=== PATIENT | female | born 1940 | race Two or more races ===

== ENCOUNTER 2017-10-18 15:56 | Inpatient (IN) | payer MEDICARE, OTHER ==
[~2017-10-18] VITALS: Ht 157.5 cm; Wt 74.4 kg
[~2017-10-18 15:56] MED LIST: ACE3T PO; ACET-1304 PO; CALC500T87 PO; CRANCAP13 PO; DICY10CA55 PO; ESOM20CA PO; METH-824 PO; MULTTAB99 PO; NEBI5TAB2 PO; OMEG300C7 PO; ROSU10TA16 PO
[2017-10-18 18:08] LABS: Basophils # (auto) 0 uL; Basophils % (auto) 0.3 % (0.0-2.0); Eosinophils # (auto) 0.1 uL; Eosinophils % (auto) 0.6 % (0.0-7.0); Hematocrit 39.9 % (36.0-46.0); Hemoglobin 13.2 g/dL (12.2-16.2); Lymphocytes # (auto) 1.6 uL; Lymphocytes % (auto) 13.2 % (10.0-50.0); Mean Corpuscular Hemoglobin 31.5 pg (28.0-32.0); Mean Corpuscular Hgb Conc. 33.1 g/dL (32.0-36.0); Mean Corpuscular Volume 95.1 fL (80.0-100.0); Monocytes # (auto) 0.7 uL; Monocytes % (auto) 5.9 % (0.0-12.0); Neutrophils # (auto) 9.5 uL; Platelet Count (auto) 252 10^3/uL (140-450); Red Blood Cells 4.19 10^6/uL (4.0-5.20); White Blood Cell 11.9 10^3/uL (4.4-10.8)
[2017-10-18] MEDS ORDERED: ONDANSETRON HCL 4 MG/2 ML VIAL IV ONE (18:15)
[2017-10-18] MEDS ORDERED: MORPHINE SULF INJ 2 MG/ML SYRINGE 1ML IV ONE ×2 (18:15→20:15)
[2017-10-18 18:26] LABS: INR 0.94 (0.9-1.15); Partial Thromboplastin Time 27.5 sec (23.78-33.04); Prothrombin Time 10.1 sec (9.27-12.13)
[2017-10-18 18:31] LABS: Alanine Aminotransferase 25 U/L (13-56); Albumin 3.9 g/dL (3.4-5.0); Alkaline Phosphatase 69 U/L (45-117); Anion Gap 5 (5-15); Aspartate Aminotransferase 14 U/L (15-37); BUN/Creatinine Ratio 12.3; Bilirubin, Total 0.2 mg/dL (0.2-1.0); Blood Urea Nitrogen 13 mg/dL (7-18); Calcium 8.6 mg/dL (8.5-10.1); Carbon Dioxide 25 mmol/L (21-32); Chloride 109 mmol/L (98-107); GFR African American 64 mL/min; GFR Non-African American 53 mL/min; Glucose 103 mg/dL (74-106); Magnesium 2.9 mg/dL (1.6-2.6); Sodium 139 mmol/L (136-145); Total Protein 7.7 g/dL (6.4-8.2)
[2017-10-18 18:38] LABS: Urine Bacteria NONE SEEN /hpf (None Seen); Urine Blood Negative /uL (Negative); Urine Hyaline Cast FEW /lpf (0 - 2); Urine Mucus FEW (None Seen); Urine Specific Gravity 1.026 (1.001-1.035); Urine WBC 6 /hpf (0 - 5)
[2017-10-18] MEDS ORDERED: PROMETHAZINE HCL 25 MG/ML 1ML IV ONE (20:15)
[2017-10-18] MEDS ORDERED: cefTRIAXone 1GM/10ml IVPUSH 10 ML IV ONE (20:15)
[2017-10-18] MEDS ORDERED: ACETAMINOPHEN 325 MG TAB PO PRN (21:15)
[2017-10-18 22:20] VITALS: BP 121/59
[2017-10-18] MEDS: CALCIUM CARB 500 MG CHEW TAB PO SCH (22:22)
[2017-10-18] MEDS: FAMOTIDINE 20 MG TAB PO SCH (22:22)
[2017-10-18 23:13] VITALS: BP 121/59
[2017-10-19] MEDS ORDERED: MORPHINE SULF INJ 2 MG/ML SYRINGE 1ML IV PRN (01:30)
[2017-10-19] MEDS: HYDROcodone-ACET 5/325MG TAB PO PRN (03:07)
[2017-10-19] MEDS: ONDANSETRON HCL 4 MG/2 ML VIAL IV PRN ×4 (03:08→23:13)
[2017-10-19 05:00] VITALS: BP 183/76
[2017-10-19 06:05] LABS: Basophils # (auto) 0 uL; Basophils % (auto) 0.3 % (0.0-2.0); Eosinophils # (auto) 0 uL; Eosinophils % (auto) 0.4 % (0.0-7.0); Hematocrit 36.4 % (36.0-46.0); Hemoglobin 12.4 g/dL (12.2-16.2); Lymphocytes % (auto) 22.1 % (10.0-50.0); Mean Corpuscular Hgb Conc. 34.1 g/dL (32.0-36.0); Mean Corpuscular Volume 93.9 fL (80.0-100.0); Monocytes # (auto) 0.6 uL; Monocytes % (auto) 6.7 % (0.0-12.0); Neutrophils # (auto) 6.4 uL; Neutrophils % (auto) 70.5 % (37.0-80.0); Platelet Count (auto) 218 10^3/uL (140-450); Red Blood Cells 3.87 10^6/uL (4.0-5.20); Red Cell Distribution Width 13.4 % (11.8-14.3)
[2017-10-19 06:34] LABS: Albumin 3.5 g/dL (3.4-5.0); Bilirubin, Total 0.4 mg/dL (0.2-1.0); Calcium 8.4 mg/dL (8.5-10.1); Potassium 3.7 mmol/L (3.5-5.1); Total Protein 6.9 g/dL (6.4-8.2)
[2017-10-19] MEDS: MORPHINE SULF INJ 2 MG/ML SYRINGE 1ML IV PRN ×2 (06:37→10:21)
[2017-10-19 08:18] VITALS: BP 165/79
[2017-10-19] MEDS: FAMOTIDINE 20 MG TAB PO SCH ×2 (10:00→23:08)
[2017-10-19] MEDS: ENOXAPARIN SOD 40 MG/0.4 ML SYRINGE SC SCH (10:00)
[2017-10-19] MEDS ORDERED: BYSTOLIC 5 MG PO SCH (10:00)
[2017-10-19] MEDS: CALCIUM CARB 500 MG CHEW TAB PO SCH ×2 (10:27→21:56)
[2017-10-19] MEDS: MORPHINE SULFATE 4 MG/ML SYR/VIAL IV PRN ×3 (12:39→23:12)
[2017-10-19] MEDS: METOPROLOL TARTRATE 50 MG TAB PO SCH ×2 (13:31→21:55)
[2017-10-19 13:52] VITALS: BP 172/70
[2017-10-19 16:24] VITALS: BP 127/67
[2017-10-19] MEDS: cefTRIAXone 1GM/10ml IVPUSH 10 ML IV SCH (21:54)
[2017-10-19] MEDS: ATORVASTATIN 20 MG TAB PO SCH (21:54)
[2017-10-19 22:00] VITALS: BP 149/84
[2017-10-20 05:00] VITALS: BP 164/83
[2017-10-20] MEDS: ONDANSETRON HCL 4 MG/2 ML VIAL IV PRN ×3 (05:14→21:10)
[2017-10-20] MEDS: MORPHINE SULFATE 4 MG/ML SYR/VIAL IV PRN ×3 (05:14→21:11)
[2017-10-20] MEDS: HYDROcodone-ACET 5/325MG TAB PO PRN ×2 (07:47→16:52)
[2017-10-20 09:02] VITALS: BP 159/82
[2017-10-20] MEDS: METOPROLOL TARTRATE 50 MG TAB PO SCH ×2 (09:45→21:09)
[2017-10-20] MEDS: CALCIUM CARB 500 MG CHEW TAB PO SCH ×2 (09:45→21:03)
[2017-10-20] MEDS: ENOXAPARIN SOD 40 MG/0.4 ML SYRINGE SC SCH (09:46)
[2017-10-20] MEDS: FAMOTIDINE 20 MG TAB PO SCH ×3 (09:46→21:03)
[2017-10-20] MEDS ORDERED: GABAPENTIN 300 MG CAP PO ONE (12:00)
[2017-10-20 12:10] VITALS: BP 151/81
[2017-10-20] MEDS: DOCUSATE SOD 100 MG CAP PO PRN (16:53)
[2017-10-20 17:10] VITALS: BP 165/83
[2017-10-20 17:50] VITALS: BP 128/72
[2017-10-20] MEDS: cefTRIAXone 1GM/10ml IVPUSH 10 ML IV SCH (21:03)
[2017-10-20] MEDS: ATORVASTATIN 20 MG TAB PO SCH (21:09)
[2017-10-20 22:00] VITALS: BP 168/85
[2017-10-21] MEDS: MORPHINE SULFATE 4 MG/ML SYR/VIAL IV PRN ×3 (04:14→17:23)
[2017-10-21] MEDS: ONDANSETRON HCL 4 MG/2 ML VIAL IV PRN ×3 (04:14→17:21)
[2017-10-21 05:30] VITALS: BP 142/76
[2017-10-21 08:55] VITALS: BP 137/74
[2017-10-21] MEDS: METOPROLOL TARTRATE 50 MG TAB PO SCH ×2 (09:29→22:06)
[2017-10-21] MEDS: CALCIUM CARB 500 MG CHEW TAB PO SCH ×2 (09:30→22:04)
[2017-10-21] MEDS: DOCUSATE SOD 100 MG CAP PO PRN (09:30)
[2017-10-21] MEDS: FAMOTIDINE 20 MG TAB PO SCH ×2 (09:30→22:05)
[2017-10-21] MEDS: GABAPENTIN 300 MG CAP PO SCH (09:31)
[2017-10-21] MEDS: ENOXAPARIN SOD 40 MG/0.4 ML SYRINGE SC SCH (09:32)
[2017-10-21 14:12] VITALS: BP 155/65
[2017-10-21 17:27] VITALS: BP 160/79
[2017-10-21 21:46] VITALS: BP 133/76
[2017-10-21] MEDS: cefTRIAXone 1GM/10ml IVPUSH 10 ML IV SCH (21:51)
[2017-10-21] MEDS: TEMAZEPAM 15 MG CAP PO PRN (22:04)
[2017-10-21] MEDS: ATORVASTATIN 20 MG TAB PO SCH (22:05)
[2017-10-22] MEDS: MORPHINE SULFATE 4 MG/ML SYR/VIAL IV PRN ×3 (01:27→18:03)
[2017-10-22] MEDS: ONDANSETRON HCL 4 MG/2 ML VIAL IV PRN ×2 (01:27→09:54)
[2017-10-22] MEDS: HYDROcodone-ACET 5/325MG TAB PO PRN ×2 (02:54→21:32)
[2017-10-22 05:07] VITALS: BP 134/73
[2017-10-22 08:00] VITALS: BP 137/74
[2017-10-22] MEDS: FAMOTIDINE 20 MG TAB PO SCH ×2 (08:47→21:31)
[2017-10-22] MEDS: CALCIUM CARB 500 MG CHEW TAB PO SCH ×2 (08:47→21:31)
[2017-10-22 08:57] VITALS: BP 137/74
[2017-10-22] MEDS: ENOXAPARIN SOD 40 MG/0.4 ML SYRINGE SC SCH (09:53)
[2017-10-22] MEDS: METOPROLOL TARTRATE 50 MG TAB PO SCH ×2 (09:53→21:31)
[2017-10-22] MEDS: GABAPENTIN 300 MG CAP PO SCH (09:53)
[2017-10-22] MEDS: DOCUSATE SOD 100 MG CAP PO PRN (09:54)
[2017-10-22 12:55] VITALS: BP 153/76
[2017-10-22] MEDS ORDERED: LACTULOSE 20Gm/30ML SOLN PO ONE (13:45)
[2017-10-22 17:00] VITALS: BP 151/83
[2017-10-22 20:04] LABS: Basophils # (auto) 0 uL; Basophils % (auto) 0.2 % (0.0-2.0); Eosinophils # (auto) 0 uL; Eosinophils % (auto) 0.2 % (0.0-7.0); Hematocrit 38.1 % (36.0-46.0); Hemoglobin 12.5 g/dL (12.2-16.2); Lymphocytes # (auto) 1.4 uL; Lymphocytes % (auto) 12.5 % (10.0-50.0); Mean Corpuscular Hemoglobin 31.3 pg (28.0-32.0); Mean Corpuscular Hgb Conc. 32.9 g/dL (32.0-36.0); Mean Corpuscular Volume 95.1 fL (80.0-100.0); Monocytes # (auto) 0.9 uL; Monocytes % (auto) 7.9 % (0.0-12.0); Neutrophils # (auto) 9.1 uL; Neutrophils % (auto) 79.2 % (37.0-80.0); Platelet Count (auto) 261 10^3/uL (140-450); White Blood Cell 11.5 10^3/uL (4.4-10.8)
[2017-10-22 20:11] LABS: INR 0.93 (0.9-1.15); Partial Thromboplastin Time 29.2 sec (23.78-33.04)
[2017-10-22 20:19] LABS: Anion Gap 12 (5-15); BUN/Creatinine Ratio 19.6; Blood Urea Nitrogen 18 mg/dL (7-18); Calcium 8.5 mg/dL (8.5-10.1); Carbon Dioxide 24 mmol/L (21-32); Chloride 97 mmol/L (98-107); GFR African American 76 mL/min; GFR Non-African American 63 mL/min; Glucose 155 mg/dL (74-106); Potassium 3.8 mmol/L (3.5-5.1); Sodium 133 mmol/L (136-145)
[2017-10-22] MEDS: cefTRIAXone 1GM/10ml IVPUSH 10 ML IV SCH (21:29)
[2017-10-22] MEDS: ATORVASTATIN 20 MG TAB PO SCH (21:30)
[2017-10-22] MEDS: LACTULOSE 20Gm/30ML SOLN PO SCH (21:30)
[2017-10-22] MEDS: TEMAZEPAM 15 MG CAP PO PRN (21:32)
[2017-10-22 22:00] VITALS: BP_SYST 85
[2017-10-23 05:16] VITALS: BP 131/79
[2017-10-23] MEDS: MORPHINE SULFATE 4 MG/ML SYR/VIAL IV PRN ×6 (08:00→21:09)
[2017-10-23] MEDS: ONDANSETRON HCL 4 MG/2 ML VIAL IV PRN ×2 (08:00→21:09)
[2017-10-23 09:00] VITALS: BP 150/66
[2017-10-23] MEDS: FAMOTIDINE 20 MG TAB PO SCH ×2 (09:55→22:14)
[2017-10-23] MEDS: METOPROLOL TARTRATE 50 MG TAB PO SCH ×2 (09:56→22:15)
[2017-10-23] MEDS: LACTULOSE 20Gm/30ML SOLN PO SCH ×2 (10:00→21:13)
[2017-10-23] MEDS: ENOXAPARIN SOD 40 MG/0.4 ML SYRINGE SC SCH (10:00)
[2017-10-23] MEDS: GABAPENTIN 300 MG CAP PO SCH (10:00)
[2017-10-23] MEDS: CALCIUM CARB 500 MG CHEW TAB PO SCH ×2 (10:00→21:13)
[2017-10-23] MEDS ORDERED: BUPIVACAINE 0.25% INJ 50ML VIAL ONE (12:06)
[2017-10-23] MEDS ORDERED: ceFAZolin 1GM/50ML 50 ML IV ONE (12:06)
[2017-10-23] MEDS ORDERED: ROCURONIUM 10MG/ML 10ML VIAL IV ONE (12:33)
[2017-10-23] MEDS ORDERED: fentaNYL CITRATE 100 MCG/2 ML VL ONE ×2 (12:33→13:59)
[2017-10-23] MEDS ORDERED: PROPOFOL 10 MG/ML 20 ML IV ONE (12:36)
[2017-10-23] MEDS: hydrALAZINE HCL 20 MG/ML VL IV PRN ×3 (14:24→17:23)
[2017-10-23] MEDS ORDERED: MORPHINE SULFATE INJECTION 1 ML ONE (14:25)
[2017-10-23] MEDS ORDERED: ePHEDrine SULFATE 50 MG/ML AMP IV PRN (16:15)
[2017-10-23] MEDS ORDERED: ONDANSETRON HCL 4 MG/2 ML VIAL IV ONE (16:15)
[2017-10-23] MEDS: HYDROcodone-ACET 5/325MG TAB PO PRN (19:54)
[2017-10-23] MEDS: cefTRIAXone 1GM/10ml IVPUSH 10 ML IV SCH (21:09)
[2017-10-23 21:27] VITALS: BP 117/60
[2017-10-23] MEDS: ATORVASTATIN 20 MG TAB PO SCH (22:14)
[2017-10-24] MEDS: HYDROcodone-ACET 5/325MG TAB PO PRN ×3 (01:01→19:35)
[2017-10-24] MEDS: TEMAZEPAM 15 MG CAP PO PRN (01:01)
[2017-10-24 05:03] VITALS: BP 132/65
[2017-10-24] MEDS: MORPHINE SULFATE 4 MG/ML SYR/VIAL IV PRN ×3 (06:47→21:58)
[2017-10-24 09:00] VITALS: BP 135/65
[2017-10-24] MEDS: FAMOTIDINE 20 MG TAB PO SCH ×2 (11:16→21:37)
[2017-10-24] MEDS: CALCIUM CARB 500 MG CHEW TAB PO SCH ×2 (11:16→21:37)
[2017-10-24] MEDS: GABAPENTIN 300 MG CAP PO SCH (11:17)
[2017-10-24] MEDS: METOPROLOL TARTRATE 50 MG TAB PO SCH ×2 (11:17→21:38)
[2017-10-24] MEDS: ONDANSETRON HCL 4 MG/2 ML VIAL IV PRN (11:17)
[2017-10-24] MEDS: LACTULOSE 20Gm/30ML SOLN PO SCH ×2 (11:19→21:37)
[2017-10-24] MEDS: ENOXAPARIN SOD 40 MG/0.4 ML SYRINGE SC SCH (11:20)
[2017-10-24] MEDS ORDERED: HYDROcodone-ACET 10/325MG TAB PO ONE (12:45)
[2017-10-24 13:00] VITALS: BP 147/65
[2017-10-24 17:00] VITALS: BP 147/67
[2017-10-24] MEDS ORDERED: FLEET ENEMA(ADULT) 135 ML PR ONE (19:00)
[2017-10-24 21:31] VITALS: BP 145/70
[2017-10-24] MEDS: ATORVASTATIN 20 MG TAB PO SCH (21:37)
[2017-10-24] MEDS: cefTRIAXone 1GM/10ml IVPUSH 10 ML IV SCH (21:37)
[2017-10-25] MEDS: TEMAZEPAM 15 MG CAP PO PRN ×2 (00:20→22:28)
[2017-10-25 04:35] VITALS: BP 141/71
[2017-10-25 05:56] LABS: Hemoglobin 10.6 g/dL (12.2-16.2)
[2017-10-25] MEDS: HYDROcodone-ACET 5/325MG TAB PO PRN ×4 (06:41→20:22)
[2017-10-25 08:49] VITALS: BP 142/69
[2017-10-25] MEDS: FAMOTIDINE 20 MG TAB PO SCH ×2 (09:46→22:28)
[2017-10-25] MEDS: LACTULOSE 20Gm/30ML SOLN PO SCH ×2 (09:46→22:27)
[2017-10-25] MEDS: CALCIUM CARB 500 MG CHEW TAB PO SCH ×2 (09:46→22:28)
[2017-10-25] MEDS: ENOXAPARIN SOD 40 MG/0.4 ML SYRINGE SC SCH (09:46)
[2017-10-25] MEDS: GABAPENTIN 300 MG CAP PO SCH (09:47)
[2017-10-25] MEDS: METOPROLOL TARTRATE 50 MG TAB PO SCH ×2 (09:47→22:28)
[2017-10-25] MEDS: MORPHINE SULFATE 4 MG/ML SYR/VIAL IV PRN (10:41)
[2017-10-25] MEDS ORDERED: MAGNESIUM CITRATE SOLUTION 300 ML BTL PO ONE (10:45)
[2017-10-25 11:16] LABS: Urine Bacteria NONE SEEN /hpf (None Seen); Urine Blood 3+ /uL (Negative); Urine Mucus FEW (None Seen); Urine Specific Gravity 1.021 (1.001-1.035); Urine WBC 25 /hpf (0 - 5)
[2017-10-25 12:30] VITALS: BP 140/64
[2017-10-25 15:28] LABS: Basophils # (auto) 0 uL; Basophils % (auto) 0.3 % (0.0-2.0); Eosinophils # (auto) 0.1 uL; Eosinophils % (auto) 0.6 % (0.0-7.0); Hemoglobin 10.7 g/dL (12.2-16.2); Lymphocytes # (auto) 1.4 uL; Lymphocytes % (auto) 15.1 % (10.0-50.0); Mean Corpuscular Hemoglobin 31.3 pg (28.0-32.0); Mean Corpuscular Hgb Conc. 33.4 g/dL (32.0-36.0); Mean Corpuscular Volume 93.9 fL (80.0-100.0); Monocytes # (auto) 0.8 uL; Monocytes % (auto) 9.4 % (0.0-12.0); Neutrophils # (auto) 6.7 uL; Neutrophils % (auto) 74.6 % (37.0-80.0); Platelet Count (auto) 270 10^3/uL (140-450); Red Blood Cells 3.41 10^6/uL (4.0-5.20); Red Cell Distribution Width 13.2 % (11.8-14.3)
[2017-10-25 15:47] LABS: Albumin 2.4 g/dL (3.4-5.0); BUN/Creatinine Ratio 21.1; Bilirubin, Total 0.4 mg/dL (0.2-1.0); Calcium 8.4 mg/dL (8.5-10.1); Potassium 3.9 mmol/L (3.5-5.1); Total Protein 6.5 g/dL (6.4-8.2)
[2017-10-25 16:26] VITALS: BP 137/72
[2017-10-25] MEDS: cefTRIAXone 1GM/10ml IVPUSH 10 ML IV SCH (21:31)
[2017-10-25 22:08] VITALS: BP 140/66
[2017-10-25] MEDS: ATORVASTATIN 20 MG TAB PO SCH (22:27)
[2017-10-25] MEDS: DOCUSATE SOD 100 MG CAP PO PRN (22:28)
[2017-10-26 05:07] VITALS: BP 146/75
[2017-10-26 08:53] VITALS: BP 158/85
[2017-10-26 09:39] LABS: Hematocrit 34.6 % (36.0-46.0); Hemoglobin 11.2 g/dL (12.2-16.2)
[2017-10-26] MEDS: LACTULOSE 20Gm/30ML SOLN PO SCH (09:49)
[2017-10-26] MEDS: ENOXAPARIN SOD 40 MG/0.4 ML SYRINGE SC SCH (09:49)
[2017-10-26] MEDS: FAMOTIDINE 20 MG TAB PO SCH (09:49)
[2017-10-26] MEDS: METOPROLOL TARTRATE 50 MG TAB PO SCH (09:50)
[2017-10-26] MEDS: GABAPENTIN 300 MG CAP PO SCH (09:50)
[2017-10-26] MEDS: CALCIUM CARB 500 MG CHEW TAB PO SCH (09:50)
[2017-10-26] MEDS: HYDROcodone-ACET 5/325MG TAB PO PRN ×2 (11:11→16:51)
== END 2017-10-26 17:45 | disposition home or self-care (01) | DRG 483 ==
LOC: ER 15:59 → OVERFLOW 16:00 → WEST WING 22:12
PROVIDERS: ADMIT Nurse Practitioner; ATTEND Family Medicine
PROC: 0LS40ZZ Reposition Left Upper Arm Tendon, Open Approach (ICD-10-PCS; 2017-10-23)
PROC: 0RRK0J6 Replacement of Left Shoulder Joint with Synthetic Substitute, Humeral Surface, Open Approach (ICD-10-PCS; principal; 2017-10-23 12:25)
DX: S42.242A 4-part fracture of surgical neck of left humerus, initial encounter for closed fracture (principal); N39.0 Urinary tract infection, site not specified; M25.00 Hemarthrosis, unspecified joint; I10 Essential (primary) hypertension; Z86.73 Personal history of transient ischemic attack (TIA), and cerebral infarction without residual deficits; K21.9 Gastro-esophageal reflux disease without esophagitis; M75.22 Bicipital tendinitis, left shoulder; E66.9 Obesity, unspecified; E78.00 Pure hypercholesterolemia, unspecified; G62.9 Polyneuropathy, unspecified; M47.892 Other spondylosis, cervical region; J32.0 Chronic maxillary sinusitis; K59.00 Constipation, unspecified; M19.90 Unspecified osteoarthritis, unspecified site; S46.012A Strain of muscle(s) and tendon(s) of the rotator cuff of left shoulder, initial encounter; W01.0XXA Fall on same level from slipping, tripping and stumbling without subsequent striking against object, initial encounter; Y93.89 Activity, other specified; Y92.89 Other specified places as the place of occurrence of the external cause; Z88.1 Allergy status to other antibiotic agents; Z68.35 Body mass index [BMI] 35.0-35.9, adult; Z79.899 Other long term (current) drug therapy; Z86.79 Personal history of other diseases of the circulatory system; Z68.30 Body mass index [BMI] 30.0-30.9, adult
CPT/HCPCS: 36415; 70450; 71045; 71046; 72125; 73020; 73030; 73200; 80048; 80053; 81001; 83735; 84484; 85014; 85018; 85025; 85610; 85730; 86850; 86900; 86901; 93005; 94761; 96374; 96375; 96376; 97116; 97163; A4565; A6257; C1713; C1776; J0690; J0696; J2405; J2704; J3490